=== PATIENT | male | born 1995 | race Caucasian/White ===

== ENCOUNTER 2018-07-19 11:52 | Emergency (ER) | payer OTHER ==
[~2018-07-19] VITALS: Ht 182.9 cm; Wt 68.0 kg
[~2018-07-19 11:52] MED LIST: ACETAMINOPHEN-1 EAC1 PO; AUGMENTIN 500-1 EACH PO; AUGMENTIN 875875 MG PO; CELEXA; CLEOCIN HCL150 MG PO; CLONAZEPAM 0.50.5 M1 PO; IBUPROFEN 600600 M1 PO; TOBRAMYCIN SULFA5 ML OP
[2018-07-19 11:55] VITALS: BP 149/53
[2018-07-19] MEDS ORDERED: MEDROLDOSEPACK PO (12:26)
[2018-07-19] MEDS ORDERED: FLONASE 0.05%50 MCG NASAL (12:26)
[2018-07-19] MEDS ORDERED: AMOXICILLIN 50500 MG PO (12:26)
== END 2018-07-19 12:30 | disposition home or self-care (01) ==
LOC: M.ERS 11:52
DX: H66.91 Otitis media, unspecified, right ear (principal); H69.91 Unspecified Eustachian tube disorder, right ear; J45.909 Unspecified asthma, uncomplicated; F41.9 Anxiety disorder, unspecified

== ENCOUNTER 2019-04-29 15:52 | Emergency (ER) | payer OTHER ==
[~2019-04-29] VITALS: Ht 180.3 cm; Wt 68.0 kg
[~2019-04-29 15:52] MED LIST changes: +AMOXICILLIN 50500 MG PO; +BACTRIM DS TAB1 EACH PO; +FLONASE 0.05%50 MCG NASAL; +MEDROLDOSEPACK PO; +TRAMADOL 50 MG50 MG PO
[2019-04-29 16:45] LABS: URINE BILIRUBIN NEGATIVE (Negative); URINE BLOOD NEGATIVE (Negative); URINE CLARITY CLEAR; URINE COLOR YELLOW; URINE GLUCOSE-RANDOM NEGATIVE (Negative); URINE KETONES NEGATIVE (Negative); URINE LEUKOCYTES-REFLEX NEGATIVE (Negative); URINE NITRITE-REFLEX NEGATIVE (Negative); URINE PROTEIN NEGATIVE (Negative)
[2019-04-29] MEDS ORDERED: TYLENOL WITH CO1 TA1 PO (17:16)
[2019-04-29] MEDS ORDERED: FLEXERIL PO (17:16)
[2019-04-29] MEDS ORDERED: MOBIC7.5 MG PO (17:16)
[2019-04-29 17:34] VITALS: BP 110/70
== END 2019-04-29 17:34 | disposition home or self-care (01) ==
LOC: M.ERS 15:52
PROVIDERS: Physician Assistant
DX: M54.5 Low back pain (principal); F41.9 Anxiety disorder, unspecified; J45.909 Unspecified asthma, uncomplicated

== ENCOUNTER 2019-05-26 17:10 | Emergency (ER) | payer OTHER ==
[~2019-05-26] VITALS: Ht 180.3 cm; Wt 68.0 kg
[~2019-05-26 17:10] MED LIST changes: +FLEXERIL PO; +MOBIC7.5 MG PO; +TYLENOL WITH CO1 TA1 PO
[2019-05-26 17:17] VITALS: BP 110/64
== END 2019-05-26 19:34 | disposition left against medical advice (07) ==
LOC: M.ERS 17:10
DX: Z53.21 Procedure and treatment not carried out due to patient leaving prior to being seen by health care provider (principal)

== ENCOUNTER 2020-02-16 16:51 | Emergency (ER) | payer OTHER ==
[~2020-02-16] VITALS: Ht 180.3 cm; Wt 68.0 kg
[2020-02-16 16:58] VITALS: BP 108/56
== END 2020-02-16 19:48 | disposition left against medical advice (07) ==
LOC: M.ERS 16:51
DX: Z53.21 Procedure and treatment not carried out due to patient leaving prior to being seen by health care provider (principal)